=== PATIENT | female | born 1995 | race Caucasian/White ===

== ENCOUNTER 2018-04-09 15:01 | Emergency (ER) | payer OTHER ==
[~2018-04-09] VITALS: Ht 165.1 cm; Wt 62.1 kg
--- NOTE | ~2018-04-09 | EKG ---
[place], [place] ELECTROCARDIOGRAM REPORT NAME: AVIS ELAINE UNIT #: [id number] ROOM: DOCTOR: EPIPHANY DRAFT REPORT BIRTHDATE: [birth year] [facility] Test Date: 2018-04-09 Test Time: 16:05:25 Pat Name: AVIS ELAINE Department: Room: Gender: F Access Coordinator: : 1995 Requested By: SHEELA SHIRLEY PA-C Order Number: [id number] Reading MD: Nilam Oliva MD Measurements Intervals [place] Rate: 77 P: 72 MA: 134 QRS: 78 QRSD: 89 T: 40 QT: 377 QTc: 427 Interpretive Statements Sinus rhythm Borderline T wave abnormalities Electronically Signed On 04-11-2018 9:24:24 PDT by Nilam Oliva MD CM:EKGRPT:ELECTROCARDIOGRAM REPORT [id number] SHEELA SHIRLEY PA-C EPIPHANY DRAFT REPORT SHEELA SHIRLEY PA-C
[2018-04-09] MEDS ORDERED: ZOLOFT100 MG PO (15:09)
[2018-04-09] MEDS ORDERED: NEURONTIN100 MG PO (15:09)
[2018-04-09] MEDS ORDERED: KEPPRA500 MG PO (15:09)
[2018-04-09 15:53] LABS: BASO % 0.4 % (0.0-1.0); EOS # 0.1 10*3/uL (0.0-0.4); EOS % 0.5 % (1.0-4.0); HEMATOCRIT 38.3 % (37.0-47.0); HEMOGLOBIN 12.7 g/dl (12.0-16.0); LYMPH % 31.2 % (27.0-41.0); MEAN CELL VOLUME 86.3 fl (81.0-99.0); MEAN CORPUSCULAR HGB 28.6 pg (27.0-31.0); MEAN CORPUSCULAR HGB CONC 33.2 g/dl (33.0-37.0); MEAN PLATELET VOLUME 9.7 fl (9.6-12.3); MONO # 0.4 10*3/uL (0.1-1.0); MONO % 4.3 % (3.0-9.0); NEUT # 6.1 10*3/uL (2.3-7.9); NEUT % 63.4 % (47.0-73.0); PLATELET COUNT AUTOMATED 257 10*3/uL (130-400); RED BLOOD COUNT 4.44 10*6/uL (4.10-5.10); RED CELL DISTRI WIDTH 13.2 % (0-14.5); WHITE BLOOD COUNT 9.7 10*3/uL (4.8-10.8)
[2018-04-09 16:08] LABS: ALBUMIN 4.2 gm/dl (3.1-4.5); ALKALINE PHOSPHATASE 70 U/L (45-117); BUN 16 mg/dl (7-24); CHLORIDE 106 mmol/L (98-107); SGOT/AST 20 IU/L (3-35); SGPT/ALT 25 U/L (12-78); SODIUM 139 mmol/L (136-145); TOTAL PROTEIN 8.3 gm/dL (6.4-8.2)
[2018-04-09 16:16] LABS: ETHYL ALCOHOL < 3.0 mg/dl (<3)
[2018-04-09 16:45] LABS: URINE AMPHETAMINES < 1000 (1000ng/ml); URINE BARBITURATES < 200 (200ng/ml); URINE BENZODIAZEPINES < 200 (200ng/ml); URINE CANNABINOIDS (THC) < 50 (50ng/ml); URINE COCAINE < 300 (300ng/ml); URINE METHADONE < 300 (300ng/ml); URINE OPIATES < 300 (300ng/ml)
[2018-04-09 16:47] LABS: URINE PHENCYCLIDINE < 25 (25ng/ml)
== END 2018-04-09 18:48 | disposition home or self-care (01) ==
LOC: ED 15:01
PROVIDERS: Physician Assistant
DX: R56.9 Unspecified convulsions (principal); Z00.8 Encounter for other general examination; Z88.8 Allergy status to other drugs, medicaments and biological substances; Z88.1 Allergy status to other antibiotic agents